=== PATIENT | male | born 1940 | race Caucasian/White ===

== ENCOUNTER 2016-12-28 05:26 | Day surgery (SDC) | payer MEDICARE, BC, OTHER ==
[~2016-12-28] VITALS: Ht 180.3 cm; Wt 89.3 kg
[~2016-12-28 05:26] MED LIST: BACTRIM DS 8001 TAB PO; CELEXA 20MG20 MG/TAB PO; CELEXA40 MG PO; COMPLETE SENIOR1 TA1 PO; DOXYCYCLINE 10100 MG PO; LEADER FIBER1 POW; MIRALAX PA17 GM/Dose PO; NORCO 325 MG-51 TAB PO; NORCO 325 MG-7.1 TAB PO; PHENERGAN 25 TA25 MG PO; PRILOTC; PROSCAR PO; SIMVISTATIN PO; TYLENOL 325MG325 MG PO; ZOCOR 20MG20 MG PO; ZOFRAN ODT4 MG PO
[2016-12-28 06:24] VITALS: BP 131/78; PULSE 77; TEMP 97.3
[2016-12-28] MEDS ORDERED: NORCO 325 MG-7.1 TAB PO (06:47)
[2016-12-28] MEDS ORDERED: PHENERGAN 25 TA25 MG PO (06:47)
[2016-12-28] MEDS ORDERED: CEPHALEXIN500 M1 (06:47)
[2016-12-28 07:14] VITALS: BP 120/72; PULSE 72; TEMP 97.3
[2016-12-28 07:30] VITALS: BP 131/65; PULSE 64
[2016-12-28 07:45] VITALS: BP 128/69; PULSE 60
== END 2016-12-28 08:18 | disposition home or self-care (01) ==
LOC: SDCO 05:26
DX: M79.9 Soft tissue disorder, unspecified (principal)
CPT/HCPCS: J0690; J2250; J2704; J2795; J7120

== ENCOUNTER 2017-03-16 05:28 | Day surgery (SDC) | payer MEDICARE, BC, OTHER ==
[~2017-03-16] VITALS: Ht 180.3 cm; Wt 89.6 kg
[~2017-03-16 05:28] MED LIST changes: +CEPHALEXIN500 M1
[2017-03-16] MEDS ORDERED: PROSCAR 5MG5 MG PO (05:50)
[2017-03-16 05:52] VITALS: BP 117/73; PULSE 71; TEMP 98
[2017-03-16] MEDS ORDERED: MOTRIN 200200 MG/TAB PO (05:52)
[2017-03-16] MEDS ORDERED: NORCO 325 MG-7.1 TAB PO (06:30)
[2017-03-16 07:33] VITALS: BP 115/66; PULSE 81; TEMP 97.3
[2017-03-16] MEDS ORDERED: CEPHALEXIN500 M1 PO (07:43)
[2017-03-16] MEDS ORDERED: PHENERGAN 25 TA25 MG PO (07:44)
[2017-03-16 07:48] VITALS: BP 109/62; PULSE 73
[2017-03-16 08:03] VITALS: BP 118/68; PULSE 76
[2017-03-16 08:18] VITALS: BP 114/71; PULSE 71
== END 2017-03-16 08:30 | disposition home or self-care (01) ==
LOC: SDCO 05:28
DX: G57.62 Lesion of plantar nerve, left lower limb (principal); L76.82 Other postprocedural complications of skin and subcutaneous tissue; Y83.8 Other surgical procedures as the cause of abnormal reaction of the patient, or of later complication, without mention of misadventure at the time of the procedure
CPT/HCPCS: J0670; J0690; J2250; J2405; J2704; J3010; J7120

== ENCOUNTER → 2018-01-07 | Outpatient (CLI) | payer MEDICARE, BC, OTHER ==
[~2018-01-07] MED LIST changes: +CEPHALEXIN500 M1 PO; +MOTRIN 200200 MG/TAB PO; +PROSCAR 5MG5 MG PO
== END ==
LOC: COL.RAD 13:17
DX: M53.3 Sacrococcygeal disorders, not elsewhere classified (principal); M48.8X6 Other specified spondylopathies, lumbar region; M47.816 Spondylosis without myelopathy or radiculopathy, lumbar region; K57.30 Diverticulosis of large intestine without perforation or abscess without bleeding

== ENCOUNTER → 2018-01-19 | Outpatient (CLI) | payer MEDICARE, BC, OTHER | LOC: MHCPAIN 12:18 | DX: G89.29 Other chronic pain (principal); M47.817 Spondylosis without myelopathy or radiculopathy, lumbosacral region; M53.3 Sacrococcygeal disorders, not elsewhere classified | CPT/HCPCS: G0463 ==

== ENCOUNTER → 2018-01-27 | Outpatient (CLI) | payer MEDICARE, BC, OTHER | LOC: MHCPAIN 12:08 | DX: M53.3 Sacrococcygeal disorders, not elsewhere classified (principal) | CPT/HCPCS: J1040; Q9967 ==

== ENCOUNTER → 2018-03-01 | Outpatient (CLI) | payer MEDICARE, BC, OTHER | LOC: MHCPAIN 13:58 | DX: G89.29 Other chronic pain (principal); M47.817 Spondylosis without myelopathy or radiculopathy, lumbosacral region; M53.3 Sacrococcygeal disorders, not elsewhere classified | CPT/HCPCS: G0463 ==

== ENCOUNTER 2018-06-07 05:47 | Day surgery (SDC) | payer MEDICARE, BC, OTHER ==
[2018-06-07] VITALS (7 sets, daily range): BP systolic 113–136; BP diastolic 53–77; PULSE 53–71; TEMP 97.8–98.3
[~2018-06-07] VITALS: Ht 180.3 cm; Wt 85.8 kg
[2018-06-07] MEDS ORDERED: FIBER0.52 GM PO (06:26)
[2018-06-07] MEDS ORDERED: MULTI VITAMINS1 TAB PO (06:26)
== END 2018-06-07 10:02 | disposition home or self-care (01) ==
LOC: SDCO 05:47
DX: M72.0 Palmar fascial fibromatosis [Dupuytren] (principal); K21.9 Gastro-esophageal reflux disease without esophagitis
CPT/HCPCS: A4565; J0690; J1100; J2250; J2704; J2795; J3010; J7120

== ENCOUNTER → 2021-10-22 | Outpatient (CLI) | payer MEDICARE, BC, OTHER ==
[~2021-10-22] MED LIST changes: +FIBER0.52 GM PO; +MULTI VITAMINS1 TAB PO
== END ==
LOC: COL.VAS 11:57
DX: I65.21 Occlusion and stenosis of right carotid artery (principal)

== ENCOUNTER 2022-09-15 07:16 | Day surgery (SDC) | payer MEDICARE, BC, OTHER ==
[~2022-09-15] VITALS: Ht 180.3 cm; Wt 88.5 kg
[2022-09-15] MEDS ORDERED: LOPRESSOR 225 MG/TAB PO (08:48)
[2022-09-15] MEDS ORDERED: TAMBOCOR 1100 MG/TAB PO (08:48)
[2022-09-15] MEDS ORDERED: ELIQUIS 5MG PO (08:49)
[2022-09-15] MEDS ORDERED: ZOCOR 20MG20 MG PO (08:49)
[2022-09-15] MEDS ORDERED: ONE-A-DAY ESSE1 EACH PO (08:50)
[2022-09-15] MEDS ORDERED: MIRALAX PA17 GM/Dose PO (08:50)
[2022-09-15] MEDS ORDERED: PROBIOTIC BLEN1 EACH PO (08:50)
[2022-09-15] MEDS ORDERED: COLACE 100100 MG/CAP PO (08:51)
[2022-09-15] MEDS ORDERED: PREVAGEN (08:51)
[2022-09-15 08:56] VITALS: BP 137/76; PULSE 80; TEMP 97.5
[2022-09-15 09:30] VITALS: BP 122/70; PULSE 70; TEMP 98.4
[2022-09-15 09:45] VITALS: BP 125/77; PULSE 69
[2022-09-15 10:00] VITALS: BP 123/65; PULSE 61
--- NOTE | 2022-09-15 10:05 | NUR ---
0930 - PT arrives from procedure and was settled by Giuliana ACEVEDO. Will monitor per intervals. 0964 - Written report obtained. PT is tolerating snack and drink well. has spoken w/ PT, who expressed desire to be discharged. VSS. Call jaeger within reach and non-slip socks remain on. 1000 - VSS. Call jaeger within reach.
--- NOTE | 2022-09-15 10:05 | NUR ---
0930 - PT arrives from procedure and was settled by Giuliana ACEVEDO. Will monitor per intervals. 0928 - Written report obtained. PT is tolerating snack and drink well. has spoken w/ PT, who expressed desire to be discharged. VSS. Call jaeger within reach and non-slip socks remain on. 1000 - VSS. Call jaeger within reach.
--- NOTE | 2022-09-15 10:18 | NUR ---
1015 - IV discontinued. Catheter tip intact and pressure bandage applied. NO redness or swelling noted. DC instructions and educational material reviewed w/ PT who verbalized understanding and signed. Questions answered to PT satifaction. PT then refused RN assistance changing into personal clothes; call jaeger remains within reach and visitor remains present.
--- NOTE | 2022-09-15 10:30 | NUR ---
1020 - PT dismissed from endo via wheelchair to the PT entrence by Alessia ACEVEDO. PT has DC packet and personal belongings and was transferred into the care of his , who is driving private car.
== END 2022-09-15 10:31 | disposition home or self-care (01) ==
LOC: SDCO 07:16
DX: K57.30 Diverticulosis of large intestine without perforation or abscess without bleeding (principal); K64.0 First degree hemorrhoids; K52.9 Noninfective gastroenteritis and colitis, unspecified; K21.9 Gastro-esophageal reflux disease without esophagitis
CPT/HCPCS: J2704; J3010; J7120

== ENCOUNTER → 2023-03-19 | Outpatient (CLI) | payer MEDICARE, BC, OTHER ==
[~2023-03-19] MED LIST changes: +COLACE 100100 MG/CAP PO; +ELIQUIS 5MG PO; +LOPRESSOR 225 MG/TAB PO; +ONE-A-DAY ESSE1 EACH PO; +PREVAGEN; +PROBIOTIC BLEN1 EACH PO; +TAMBOCOR 1100 MG/TAB PO
== END ==
LOC: COL.RAD 08:56
DX: M51.26 Other intervertebral disc displacement, lumbar region (principal); M43.17 Spondylolisthesis, lumbosacral region; M48.061 Spinal stenosis, lumbar region without neurogenic claudication; M24.28 Disorder of ligament, vertebrae

== ENCOUNTER 2024-05-17 10:00 | Day surgery (SDC) | payer MEDICARE, BC, OTHER ==
[~2024-05-17] VITALS: Ht 180.3 cm; Wt 89.0 kg
[~2024-05-17 10:00] MED LIST changes: -PREVAGEN; +PREVAGEN PO
[2024-05-17] MEDS ORDERED: NS Flush 10 ML SYRINGE PRN ICA (10:30)
[2024-05-17] MEDS ORDERED: PRILOSEC 20MG20 MG PO (11:14)
[2024-05-17 11:15] VITALS: BP 148/95; PULSE 89; TEMP 98.6
[2024-05-17 11:15] LABS: HEMOGLOBIN 13.5 g/dl (13.5-18.0); MEAN CELL VOLUME 91 fl (80.0-100.0); MEAN CORPUSCULAR HEMOGLOBIN 31 pg (27-31); MEAN CORPUSCULAR HGB CONC 34 g/dl (33.0-37.0); MEAN PLATELET VOLUME 9.8 fl (7.4-10.4); PLATELET COUNT 215 K/mm3 (130-400); RED BLOOD COUNT 4.42 M/mm3 (4.20-5.60); REDCELL DISTRIBUTION WIDTH-CV 12.8 % (11.5-14.5)
[2024-05-17 11:21] LABS: INR 1.5 (0.8-3.0); PROTHROMBIN TIME 15.7 SECONDS (9.7-12.8)
[2024-05-17 11:24] LABS: PARTIAL THROMBOPLASTIN TIME 35.7 SECONDS (26.0-37.0)
[2024-05-17 12:10] LABS: CALCIUM 9.8 mg/dL (8.4-10.2); CREATININE, serum 1.14 mg/dL (0.72-1.25); POTASSIUM 4.5 mEq/L (3.5-4.5)
[2024-05-17] MEDS ORDERED: Lidocaine PF 2% (20 MG/ML) 5 ML VIAL ONE (12:27)
[2024-05-17 12:30] LABS: THYROID STIMULATING HORMONE 2.099 uIU/mL (0.350-4.940)
[2024-05-17] MEDS ORDERED: LR 1,000 ML IV SCH (13:13)
--- NOTE | 2024-05-17 13:29 | NUR ---
PT ALERT AND ORIENTED, VSS. PT DENIES PAIN OR NAUSEA. SPOUSE BROUGHT TO BEDSIDE, PLAN OF CARE REVIEWED. TRANSFER OF CARE REPORT TO CURTIS RODRIGUEZ. BED PLACED IN LOWEST POSITION, CALL LIGHT WITHIN REACH, X3 BEDRAILS IN PLACE.
[2024-05-17 13:30] VITALS: BP 113/68; PULSE 64
--- NOTE | 2024-05-17 13:30 | NUR ---
report from [facility] lab technician, pt sits up in bed, awake and alert, at bedside, call light in reach. lunch ordered. EKG done
[2024-05-17 13:45] VITALS: BP 118/67; PULSE 68
[2024-05-17 14:00] VITALS: BP 109/80; PULSE 67
--- NOTE | 2024-05-17 14:00 | NUR ---
pt sits up in bed, eats lunch, has no c/o, VSS
[2024-05-17 14:15] VITALS: BP 104/63; PULSE 67
[2024-05-17 14:45] VITALS: BP 146/80; PULSE 60
--- NOTE | 2024-05-17 14:50 | NUR ---
iv d'cd intact, pt up in room. reviewed discharge inst. with pt and , on medications and next appt, with verbal understanding. pt is dressed, discharged via w/c to car
[2024-05-17] MEDS ORDERED: NS Flush 10 ML SYRINGE BID ICA SCH (21:00)
== END 2024-05-17 14:50 | disposition home or self-care (01) ==
LOC: COL.CAR 10:00
PROVIDERS: Internal Medicine Cardiovascular Disease
DX: I48.92 Unspecified atrial flutter (principal); I48.0 Paroxysmal atrial fibrillation
CPT/HCPCS: J2704; J7120